=== PATIENT | male | born 1955 | race Hispanic/Latino ===

== ENCOUNTER 2018-01-21 12:43 | Emergency (ER) | payer BC ==
[~2018-01-21 12:43] MED LIST: AEC81 PO; ASPI-1197 PO; ATOR10 PO; ATOR40TA69 PO; CLOP75TA32 PO; ISOS60TA4 PO; METO-409 PO; METO25 GT; NASOCORT; TRIA10.8 NS; TYL3 GT
[2018-01-21] MEDS ORDERED: LIDOCAINE 1%-EPI 1:100,000 20 ML VIAL IJ ONE (13:11)
[2018-01-21] MEDS ORDERED: TETANUS/DIPHTHERIA TOXOID [ADULT] 0.5 ML VIAL IM ONE (13:38)
== END 2018-01-21 14:10 | disposition home or self-care (01) ==
LOC: EDH 12:43
DX: S51.812A Laceration without foreign body of left forearm, initial encounter (principal); I25.10 Atherosclerotic heart disease of native coronary artery without angina pectoris; I10 Essential (primary) hypertension; W45.8XXA Other foreign body or object entering through skin, initial encounter; Y93.89 Activity, other specified; Y92.89 Other specified places as the place of occurrence of the external cause; Y99.8 Other external cause status
CPT/HCPCS: 12002; 73090; 90471; 90714; 99284; J3490

== ENCOUNTER → 2019-02-27 | Outpatient (CLI) | payer OTHER | END | disposition home or self-care (01) | LOC: RAH 07:36 | PROVIDERS: ATTEND Internal Medicine Gastroenterology | DX: N26.1 Atrophy of kidney (terminal) (principal) | CPT/HCPCS: 76700; 93975 ==

== ENCOUNTER → 2019-04-01 | Outpatient (CLI) | payer OTHER ==
[~2019-04-01] MED LIST changes: +IOHEXOL-350 50ML VIAL IV ONE
== END | disposition home or self-care (01) ==
LOC: RAH 08:45
PROVIDERS: ATTEND Internal Medicine Gastroenterology
DX: R16.1 Splenomegaly, not elsewhere classified (principal); K74.60 Unspecified cirrhosis of liver; R91.1 Solitary pulmonary nodule; K76.9 Liver disease, unspecified; D18.09 Hemangioma of other sites; I70.0 Atherosclerosis of aorta
CPT/HCPCS: 74170; Q9967

== ENCOUNTER → 2022-08-30 | Outpatient (CLI) | payer OTHER ==
[~2022-08-30] MED LIST changes: -ASPI-1197 PO; -ATOR10 PO; -CLOP75TA32 PO; -IOHEXOL-350 50ML VIAL IV ONE; -ISOS60TA4 PO; -METO-409 PO; -METO25 GT; +METO25TA3 PO; -NASOCORT; +RAMI2.5C55 PO; -TRIA10.8 NS; -TYL3 GT
[2022-08-30 12:12] LABS: BASOPHILS % (AUTO) 0.7 % (0.0-5.0); EOSINOPHILS % (AUTO) 5.9 % (0.0-8.0); HEMATOCRIT 27.1 % (42-54); LYMPHOCYTES % (AUTO) 29.7 % (21.0-51.0); MEAN CORPUSCULAR HEMOGLOBIN 25.9 pg (27.0-33.0); MEAN CORPUSCULAR HGB CONC 30.6 g/dL (32.0-36.0); MEAN CORPUSCULAR VOLUME 84.7 fL (79-99); MONOCYTES % (AUTO) 9.4 % (3.0-13.0); NEUTROPHILS % (AUTO) 54.1 % (40.0-77.0); PLATELET COUNT (AUTO) 56 K/uL (130-400); RED CELL DISTRIBUTION WIDTH 14.4 % (11.0-15.5)
[2022-08-30 12:45] LABS: ALBUMIN 2.8 g/dL (3.5-5.0); CREATININE 1.1 mg/dL (0.5-1.5); POTASSIUM 4.2 mmol/L (3.5-5.1); TOTAL PROTEIN, SERUM 7.3 g/dL (6.0-8.3)
== END | disposition home or self-care (01) ==
LOC: LAB 10:47
PROVIDERS: ATTEND Nurse Practitioner Acute Care
DX: D64.9 Anemia, unspecified (principal)
CPT/HCPCS: 36415; 80053; 82728; 83540; 83550; 83880; 85025

== ENCOUNTER → 2022-10-04 | Outpatient (CLI) | payer OTHER | END | disposition home or self-care (01) | LOC: RAH 07:47 | PROVIDERS: ATTEND Internal Medicine Gastroenterology | DX: K74.69 Other cirrhosis of liver (principal); R93.2 Abnormal findings on diagnostic imaging of liver and biliary tract; N26.1 Atrophy of kidney (terminal) | CPT/HCPCS: 76700; 93975 ==

== ENCOUNTER → 2023-07-29 | Outpatient (CLI) | payer OTHER | END | disposition home or self-care (01) | LOC: RAH 11:02 | PROVIDERS: ATTEND Internal Medicine | DX: R16.0 Hepatomegaly, not elsewhere classified (principal); R77.2 Abnormality of alphafetoprotein | CPT/HCPCS: 76700 ==

== ENCOUNTER → 2023-08-27 | Outpatient (CLI) | payer OTHER ==
[2023-08-27 09:40] LABS: CREATININE 1.2 mg/dL (0.5-1.3)
== END | disposition home or self-care (01) ==
LOC: LAB 08:48
PROVIDERS: ATTEND Internal Medicine Gastroenterology
DX: R77.2 Abnormality of alphafetoprotein (principal)
CPT/HCPCS: 36415; 82565; 84520

== ENCOUNTER → 2023-09-03 | Outpatient (CLI) | payer OTHER ==
[~2023-09-03] MED LIST changes: +GADOTERATE MEGLUMINE 10 MMOL/20 ML VIAL IV ONE
== END | disposition home or self-care (01) ==
LOC: RAH 07:30
PROVIDERS: ATTEND Internal Medicine Gastroenterology
DX: K74.60 Unspecified cirrhosis of liver (principal); R77.2 Abnormality of alphafetoprotein; R93.2 Abnormal findings on diagnostic imaging of liver and biliary tract
CPT/HCPCS: 74183; A9575

== ENCOUNTER → 2024-07-28 | Outpatient (CLI) | payer OTHER ==
[~2024-07-28] MED LIST changes: -GADOTERATE MEGLUMINE 10 MMOL/20 ML VIAL IV ONE; -RAMI2.5C55 PO; +RAMI2.5C57 PO
[2024-07-28] MEDS: REGADENOSON 0.4 MG/5 ML PF SYG IVP ONE (14:46)
--- NOTE | 2024-07-28 19:24 | HMCSR ---
APPROVED REPORT Height: 5 ft 4in Weight: 185 lbs TEST INDICATIONS CAD The imaging protocol used to acquire images was Rest Tc-99m/stress Tc-99m 1 day Consent: The procedure was explained and understood by the patient. Informerd consent was witnessed Tim Parker RN First, low dose rest was performed then high dose stress. RESTING DATA: The resting ekg shows: NSR Rest SPECT myocardial perfusion imaging was performed in supine position 68 minutes following the int ravenous injection of 12.4 mCi of Tc-99 Sestamibi. Time of rest injection: 08:07: Date: 07/28/2024 Time of rest imagin:15: Date: 07/28/2024 PHARMACOLOGIC STRESS: Pharmacologic stress test was performed by injecting regadenoson 0.4 mg IV push followed by the intra venous injection of 30.4 mCi of Tc-99 Sestamibi. Time of stress injection: 09:42: Date: 07/28/2024 Time of stress imagin:49: Date: 07/28/2024 Heart Rate at time of stress injection: 66 bpm. Gated Stress SPECT was performed 67 minutes after stress injection. The images were gated to evaluate regional wall motion and calculate left ventricular ejection fracti on. STRESS DETAILS Reason for Termination: Infusion complete Stress Symptoms: Dyspnea Max HR Achieved: 78 bpm % of APMHR Achieved: 52 Max Blood Pressure: 150/70 mmHg Stress ECG: NSR Study quality was good. Lung uptake was Normal. Artifact: No artifact IMPRESSION Normal pharmacologic nuclear stress test. Conclusion Normal perfusion. LVEF 68%.
== END | disposition home or self-care (01) ==
LOC: SHCH 07:38
PROVIDERS: ATTEND Internal Medicine Cardiovascular Disease
DX: I25.10 Atherosclerotic heart disease of native coronary artery without angina pectoris (principal); R06.00 Dyspnea, unspecified
CPT/HCPCS: 78452; 93017; J2785; A9500 ×2

== ENCOUNTER → 2024-12-31 | Outpatient (CLI) | payer OTHER ==
--- NOTE | 2025-01-01 06:32 | HMCIMG ---
EXAMINATION: ULTRASOUND OF THE RETROPERITONEUM. CLINICAL HISTORY: Abnormal renal function test. COMPARISON: None. TECHNIQUE: Real-time grayscale ultrasound images of the kidneys. FINDINGS: The right kidney is smaller in caliber, the right kidney measures 7.5 x 4.0 x 4.0 cm in its craniocaudal, AP, and transverse dimensions respectively. There is renal cortical thinning and increased cortical echogenicity. There is no renal calculus or hydronephrosis. There are simple cortical cysts that measure 1.0 x 0.5 x 0.7 cm in the lateral lower pole and 0.8 x 0.6 x 0.9 cm in the medial upper pole of the right kidney. The left kidney is normal in caliber, the left kidney measures 9.7 x 5.1 x 4.5 cm in its craniocaudal, AP, and transverse dimensions respectively. There is normal renal cortical thickness, and cortical echogenicity. There is no renal calculus or hydronephrosis. The urinary bladder is empty. There is severe free fluid in the peritoneal cavity. There are splenorenal varices. IMPRESSION: Smaller right kidney with parenchymal disease. Right renal simple cortical cysts. Severe ascites. Splenorenal varices. /[place]
== END | disposition home or self-care (01) ==
LOC: RAH 07:53
PROVIDERS: ATTEND Internal Medicine
DX: N28.1 Cyst of kidney, acquired (principal); N27.0 Small kidney, unilateral; R18.8 Other ascites; R94.4 Abnormal results of kidney function studies
CPT/HCPCS: 76770